=== PATIENT | female | born 1950 | race Caucasian/White ===

== ENCOUNTER 2022-05-29 14:36 | Inpatient (IN) | payer MEDICARE, MEDICAID ==
[~2022-05-29] VITALS: Ht 152.4 cm; Wt 77.2 kg
[2022-05-29] MEDS ORDERED: HYDROCODONE/APAP 7.5MG-325MG 1 EA TAB PO NR (15:45)
[2022-05-29 16:12] LABS: CLARITY,URINE SL CLOUDY (CLEAR); COLOR,URINE YELLOW (YELLOW)
[2022-05-29 16:13] LABS: KETONES,URINE NEGATIVE (NEGATIVE); LEUKOCYTE ESTERASE ,URINE TRACE (NEGATIVE); NITRITE,URINE NEGATIVE (NEGATIVE); PROTEIN,URINE DIPSTICK NEGATIVE (NEGATIVE); URINE UROBILINOGEN 0.2 mg/dL (0.2 - 1)
[2022-05-29 16:24] LABS: WBC,URINE (MAN) >50 /HPF (0-5)
[2022-05-29 16:25] LABS: BACTERIA,URINE MANY /HPF; EPITHELIAL CELLS,URINE MANY /LPF; TRANSITIONAL EPI CELLS,URINE MANY
[2022-05-29 16:26] LABS: RENAL EPITHELIAL CELLS,URINE FEW
[2022-05-29 16:48] LABS: BASOPHILS % 0.6 % (0.0-1.0); EOSINOPHILS # (AUTO) 0.5 (0.0-0.4); EOSINOPHILS % 8.2 % (0.0-6.0); HEMATOCRIT 35.8 % (34.2-44.1); HEMOGLOBIN 10.4 g/dL (12.0-16.0); LYMPHOCYTES # (AUTO) 1.6 (1.0-3.2); LYMPHOCYTES % 24.6 % (18.0-39.1); MEAN CORPUSCULAR HEMOGLOBIN 24.8 pg (28-32); MEAN CORPUSCULAR HGB CONC 29.1 g/dL (31-35); MEAN CORPUSCULAR VOLUME 85.2 fL (81-99); MONOCYTES # (AUTO) 0.5 (0.2-0.8); MONOCYTES % 7.3 % (4.4-11.3); NEUTROPHILS # (AUTO) 3.8 (2.1-6.9); NEUTROPHILS % 58.5 % (38.7-80.0); PLATELET COUNT 172 x10e3/uL (140-360); RED CELL DISTRIBUTION WIDTH 13.9 % (11.7-14.4)
[2022-05-29 16:51] LABS: INR 0.8; PROTHROMBIN TIME 11.8 seconds (11.9-14.5)
[2022-05-29 16:58] LABS: ALANINE AMINOTRANSFERASE 9 IU/L (0-55); ALBUMIN 3.2 g/dL (3.5-5.0); ALBUMIN/GLOBULIN RATIO 0.7 (0.8-2.0); ALKALINE PHOSPHATASE 100 IU/L (40-150); ANION GAP 17.9 mmol/L (8-16); BLOOD UREA NITROGEN 38 mg/dL (7-26); BUN/CREATININE RATIO 22 (6-25); CALCIUM 8.5 mg/dL (8.4-10.2); CARBON DIOXIDE 17 mmol/L (22-29); CHLORIDE 108 mmol/L (98-107); CREATINE KINASE 61 IU/L (29-168); CREATININE, SERUM 1.76 mg/dL (0.57-1.11); GLUCOSE 260 mg/dL (74-118); MAGNESIUM 1.7 MG/DL (1.3-2.1); POTASSIUM 4.9 mmol/L (3.5-5.1); SODIUM 138 mmol/L (136-145)
[2022-05-29] MEDS ORDERED: HEPARIN 25,000 UNIT 1,200 UNIT in DEXTROSE 5% 250ML 250 ML IV SCH (17:45)
[2022-05-29] MEDS ORDERED: HEPARIN SOD (PORCINE) 5,000 UNIT/ML VIAL IV ONE (17:45)
[2022-05-29] MEDS ORDERED: DEXTROSE 50% SYRINGE 50 ML IV PRN (18:00)
[2022-05-29] MEDS ORDERED: METOPROLOL TARTRATE 25 MG TAB PO SCH (18:00)
[2022-05-29] MEDS ORDERED: FAMOTIDINE 20 MG/2 ML VIAL IV SCH (18:00)
[2022-05-29] MEDS ORDERED: HEPARIN 25,000 UNIT DRIP IV ONE ×2 (18:41→23:38)
[2022-05-29] MEDS: Morphine 4mg INJECTION 4 MG/ML INJ IV PRN (19:30)
[2022-05-29] MEDS: ONDANSETRON HCL INJ 2MG/ML 2ML 2 MG/ML VIAL IV PRN (19:30)
[2022-05-29 20:07] LABS: CREATINE KINASE MB 2.1 ng/mL (0-5.0)
[2022-05-29 20:48] LABS: THYROID STIMULATING HORMONE 0.754 uIU/mL (0.350-4.940)
[2022-05-29 21:00] VITALS: BP 122/70
[2022-05-29] MEDS ORDERED: PANTOPRAZOLE SO40 MG PO (21:31)
[2022-05-29] MEDS ORDERED: ATORVASTATIN CA40 MG PO (21:31)
[2022-05-29] MEDS ORDERED: QUETIAPINE FUM400 MG PO (21:31)
[2022-05-29] MEDS ORDERED: AMBIEN10 MG PO (21:31)
[2022-05-29] MEDS ORDERED: CLOPIDOGREL75 MG PO (21:31)
[2022-05-29] MEDS ORDERED: HUMALOG100 UNIT/1 SQ (21:31)
[2022-05-29] MEDS ORDERED: BUSPIRONE HCL10 MG PO (21:31)
[2022-05-29] MEDS ORDERED: DULOXETINE HCL60 MG PO (21:31)
[2022-05-29] MEDS: QUETIAPINE FUMARATE 100 MG TAB PO SCH (23:34)
[2022-05-29] MEDS: INSULIN LISPRO 100 UNIT/1 ML 3ML VIAL SQ SCH (23:34)
[2022-05-29] MEDS: ZOLPIDEM TARTRATE 10 MG TAB PO SCH (23:34)
[2022-05-29] MEDS: SODIUM CHLORIDE 0.9% 1000ML 1,000 ML IV SCH (23:45)
[2022-05-30] VITALS (10 sets, daily range): BP systolic 90–121; BP diastolic 54–81
[2022-05-30] MEDS: ONDANSETRON HCL INJ 2MG/ML 2ML 2 MG/ML VIAL IV PRN
[2022-05-30] MEDS ORDERED: HEPARIN SOD (PORCINE) 5,000 UNIT/ML VIAL ONE (00:20)
[2022-05-30 01:21] LABS: CREATINE KINASE MB 2.1 ng/mL (0-5.0)
[2022-05-30 06:22] LABS: BASOPHILS % 0.6 % (0.0-1.0); EOSINOPHILS # (AUTO) 0.6 (0.0-0.4); EOSINOPHILS % 9.1 % (0.0-6.0); HEMATOCRIT 28.9 % (34.2-44.1); HEMOGLOBIN 8.7 g/dL (12.0-16.0); LYMPHOCYTES # (AUTO) 1.8 (1.0-3.2); LYMPHOCYTES % 28.7 % (18.0-39.1); MEAN CORPUSCULAR HEMOGLOBIN 25.1 pg (28-32); MEAN CORPUSCULAR HGB CONC 30.1 g/dL (31-35); MEAN CORPUSCULAR VOLUME 83.5 fL (81-99); MONOCYTES # (AUTO) 0.4 (0.2-0.8); MONOCYTES % 6.6 % (4.4-11.3); NEUTROPHILS # (AUTO) 3.4 (2.1-6.9); NEUTROPHILS % 54.2 % (38.7-80.0); PLATELET COUNT 223 x10e3/uL (140-360); RED BLOOD COUNT 3.46 x10e6/uL (3.6-5.1); RED CELL DISTRIBUTION WIDTH 14.2 % (11.7-14.4)
[2022-05-30 06:52] LABS: ALBUMIN 2.5 g/dL (3.5-5.0); ALBUMIN/GLOBULIN RATIO 0.8 (0.8-2.0); ANION GAP 12.9 mmol/L (8-16); CALCIUM 7.5 mg/dL (8.4-10.2); CHOL/HDL RATIO 3.6 (3.0-3.6); CREATININE, SERUM 1.74 mg/dL (0.57-1.11); POTASSIUM 3.9 mmol/L (3.5-5.1)
[2022-05-30] MEDS: SODIUM CHLORIDE 0.9% 1000ML 1,000 ML IV SCH ×2 (08:10→13:45)
[2022-05-30] MEDS: PANTOPRAZOLE SOD 40 MG TABEC PO SCH (08:39)
[2022-05-30] MEDS: INSULIN LISPRO 100 UNIT/1 ML 3ML VIAL SQ SCH ×4 (08:40→20:55)
[2022-05-30] MEDS: DULOXETINE HCL 30 MG DELAYED RELEASE PO SCH ×2 (08:40→19:58)
[2022-05-30] MEDS: BUSPIRONE HCL 10 MG TABLET PO SCH ×3 (08:41→20:43)
[2022-05-30] MEDS: FAMOTIDINE 20 MG/2 ML VIAL IV SCH (08:46)
[2022-05-30] MEDS ORDERED: CLOPIDOGREL BISULFATE 75 MG TAB PO SCH (09:00)
[2022-05-30] MEDS: METOPROLOL TARTRATE 25 MG TAB PO SCH ×2 (10:02→21:22)
[2022-05-30] MEDS: Morphine 4mg INJECTION 4 MG/ML INJ IV PRN ×5 (10:04→22:24)
[2022-05-30] MEDS: LIDOCAINE 4% PATCH TP SCH (15:10)
[2022-05-30] MEDS: QUETIAPINE FUMARATE 100 MG TAB PO SCH (20:44)
[2022-05-30] MEDS: ATORVASTATIN 40 MG TAB PO SCH (20:44)
[2022-05-30] MEDS: ZOLPIDEM TARTRATE 10 MG TAB PO SCH (20:44)
[2022-05-31] VITALS (8 sets, daily range): BP systolic 98–132; BP diastolic 52–70
[2022-05-31] MEDS: Morphine 4mg INJECTION 4 MG/ML INJ IV PRN ×4 (05:08→17:57)
[2022-05-31 06:18] LABS: ANION GAP 12.8 mmol/L (8-16); CALCIUM 7.5 mg/dL (8.4-10.2); CREATININE, SERUM 1.88 mg/dL (0.57-1.11); POTASSIUM 4.8 mmol/L (3.5-5.1)
[2022-05-31] MEDS ORDERED: HEPARIN 25,000 UNIT 25,000 UNIT in DEXTROSE 5% 250ML 250 ML IV SCH (06:30)
[2022-05-31] MEDS ORDERED: HEPARIN 25,000 UNIT 1,600 UNIT in DEXTROSE 5% 250ML 250 ML IV SCH (06:45)
[2022-05-31] MEDS: ONDANSETRON HCL INJ 2MG/ML 2ML 2 MG/ML VIAL IV PRN (09:22)
[2022-05-31] MEDS: FAMOTIDINE 20 MG/2 ML VIAL IV SCH (09:22)
[2022-05-31] MEDS: DULOXETINE HCL 30 MG DELAYED RELEASE PO SCH ×2 (09:23→20:52)
[2022-05-31] MEDS: LIDOCAINE 4% PATCH TP SCH (09:23)
[2022-05-31] MEDS: BUSPIRONE HCL 10 MG TABLET PO SCH ×3 (09:23→20:51)
[2022-05-31] MEDS: METOPROLOL TARTRATE 25 MG TAB PO SCH ×2 (09:23→20:51)
[2022-05-31] MEDS: PANTOPRAZOLE SOD 40 MG TABEC PO SCH (09:24)
[2022-05-31] MEDS: INSULIN LISPRO 100 UNIT/1 ML 3ML VIAL SQ SCH ×4 (10:19→21:10)
[2022-05-31] MEDS: SODIUM CHLORIDE 0.9% 1000ML 1,000 ML IV SCH (14:55)
[2022-05-31] MEDS: QUETIAPINE FUMARATE 100 MG TAB PO SCH (20:51)
[2022-05-31] MEDS: ATORVASTATIN 40 MG TAB PO SCH (20:51)
[2022-05-31] MEDS: ZOLPIDEM TARTRATE 10 MG TAB PO SCH (20:52)
[2022-05-31] MEDS: HEPARIN SOD (PORCINE) 5,000 UNIT/ML VIAL SC SCH (21:10)
[2022-06-01] VITALS (8 sets, daily range): BP systolic 101–135; BP diastolic 54–78
[2022-06-01 06:11] LABS: ANION GAP 14.8 mmol/L (8-16); CALCIUM 7.3 mg/dL (8.4-10.2); CREATININE, SERUM 1.92 mg/dL (0.57-1.11); POTASSIUM 4.8 mmol/L (3.5-5.1)
[2022-06-01] MEDS: INSULIN LISPRO 100 UNIT/1 ML 3ML VIAL SQ SCH ×4 (07:30→21:19)
[2022-06-01] MEDS: DULOXETINE HCL 30 MG DELAYED RELEASE PO SCH ×2 (08:59→21:08)
[2022-06-01] MEDS: METOPROLOL TARTRATE 25 MG TAB PO SCH ×2 (08:59→21:07)
[2022-06-01] MEDS: BUSPIRONE HCL 10 MG TABLET PO SCH ×3 (08:59→21:07)
[2022-06-01] MEDS: LIDOCAINE 4% PATCH TP SCH (08:59)
[2022-06-01] MEDS: SODIUM CHLORIDE 0.9% 1000ML 1,000 ML IV SCH (09:00)
[2022-06-01] MEDS: PANTOPRAZOLE SOD 40 MG TABEC PO SCH (09:00)
[2022-06-01] MEDS: FAMOTIDINE 20 MG/2 ML VIAL IV SCH (09:00)
[2022-06-01] MEDS: HEPARIN SOD (PORCINE) 5,000 UNIT/ML VIAL SC SCH ×2 (09:19→21:19)
[2022-06-01] MEDS ORDERED: SODIUM BICARBONATE 8.4% 50 ML in SODIUM CHLORIDE 0.45% 1,000 ML IV ONE (10:00)
[2022-06-01] MEDS: Morphine 4mg INJECTION 4 MG/ML INJ IV PRN ×2 (14:22→17:53)
[2022-06-01] MEDS ORDERED: SODIUM CHLORIDE 0.9% 1000ML 1,000 ML IV SCH (14:30)
[2022-06-01] MEDS: SENNOSIDES 8.6 MG TAB PO SCH ×2 (15:15→17:00)
[2022-06-01] MEDS ORDERED: LACTULOSE SYRUP 20 GM/30 ML UDC PO PRN (15:15)
[2022-06-01] MEDS ORDERED: LOPRESSOR25 MG PO (15:21)
[2022-06-01] MEDS ORDERED: SENOKOT8.6 MG PO (15:21)
[2022-06-01] MEDS ORDERED: DOCUSATE SODIU100 MG PO (15:21)
[2022-06-01] MEDS ORDERED: ONDANSETRON ODT4 MG PO (15:21)
[2022-06-01 16:51] LABS: ANION GAP 15.4 mmol/L (8-16); CALCIUM 7.6 mg/dL (8.4-10.2); CREATININE, SERUM 1.95 mg/dL (0.57-1.11); POTASSIUM 4.4 mmol/L (3.5-5.1)
[2022-06-01] MEDS: QUETIAPINE FUMARATE 100 MG TAB PO SCH (21:07)
[2022-06-01] MEDS: ZOLPIDEM TARTRATE 10 MG TAB PO SCH (21:07)
[2022-06-01] MEDS: ATORVASTATIN 40 MG TAB PO SCH (21:07)
[2022-06-02 00:45] VITALS: BP 102/64
[2022-06-02 04:40] VITALS: BP 102/64
[2022-06-02 06:34] VITALS: BP 117/56
[2022-06-02] MEDS: INSULIN LISPRO 100 UNIT/1 ML 3ML VIAL SQ SCH (07:20)
[2022-06-02 07:36] VITALS: BP 111/65
[2022-06-02 08:10] VITALS: BP 111/65
[2022-06-02] MEDS: SENNOSIDES 8.6 MG TAB PO SCH (09:00)
[2022-06-02] MEDS: DULOXETINE HCL 30 MG DELAYED RELEASE PO SCH (09:17)
[2022-06-02] MEDS: METOPROLOL TARTRATE 25 MG TAB PO SCH (09:18)
[2022-06-02] MEDS: Morphine 4mg INJECTION 4 MG/ML INJ IV PRN (09:18)
[2022-06-02] MEDS: BUSPIRONE HCL 10 MG TABLET PO SCH (09:18)
[2022-06-02] MEDS: FAMOTIDINE 20 MG/2 ML VIAL IV SCH (09:18)
[2022-06-02] MEDS: PANTOPRAZOLE SOD 40 MG TABEC PO SCH (09:18)
[2022-06-02] MEDS: LIDOCAINE 4% PATCH TP SCH (09:19)
[2022-06-02 09:21] LABS: BASOPHILS % 0.5 % (0.0-1.0); EOSINOPHILS # (AUTO) 0.5 (0.0-0.4); EOSINOPHILS % 6.9 % (0.0-6.0); HEMATOCRIT 28.6 % (34.2-44.1); HEMOGLOBIN 8.5 g/dL (12.0-16.0); LYMPHOCYTES # (AUTO) 1.2 (1.0-3.2); LYMPHOCYTES % 17.9 % (18.0-39.1); MEAN CORPUSCULAR HEMOGLOBIN 24.8 pg (28-32); MEAN CORPUSCULAR HGB CONC 29.7 g/dL (31-35); MEAN CORPUSCULAR VOLUME 83.4 fL (81-99); MONOCYTES # (AUTO) 0.4 (0.2-0.8); MONOCYTES % 6.6 % (4.4-11.3); NEUTROPHILS # (AUTO) 4.4 (2.1-6.9); NEUTROPHILS % 66.7 % (38.7-80.0); PLATELET COUNT 208 x10e3/uL (140-360); RED BLOOD COUNT 3.43 x10e6/uL (3.6-5.1); RED CELL DISTRIBUTION WIDTH 14.6 % (11.7-14.4)
[2022-06-02] MEDS: HEPARIN SOD (PORCINE) 5,000 UNIT/ML VIAL SC SCH (09:32)
[2022-06-02 09:42] LABS: ANION GAP 14.4 mmol/L (8-16); CALCIUM 7.3 mg/dL (8.4-10.2); CREATININE, SERUM 1.87 mg/dL (0.57-1.11); POTASSIUM 4.4 mmol/L (3.5-5.1)
[2022-06-02 11:19] VITALS: BP 109/59
== END 2022-06-02 12:35 | disposition home health service (06) | DRG 690 ==
LOC: ER 14:47 → ERHOLD 18:01 → MED/SURG3 20:41
PROVIDERS: ADMIT Internal Medicine; ATTEND Internal Medicine
PROC: 02HV33Z Insertion of Infusion Device into Superior Vena Cava, Percutaneous Approach (ICD-10-PCS; principal; 2022-05-29)
DX: N39.0 Urinary tract infection, site not specified (principal); E87.2 Acidosis; I13.0 Hypertensive heart and chronic kidney disease with heart failure and stage 1 through stage 4 chronic kidney disease, or unspecified chronic kidney disease; I50.32 Chronic diastolic (congestive) heart failure; N18.4 Chronic kidney disease, stage 4 (severe); I25.10 Atherosclerotic heart disease of native coronary artery without angina pectoris; Z95.5 Presence of coronary angioplasty implant and graft; K21.9 Gastro-esophageal reflux disease without esophagitis; E11.69 Type 2 diabetes mellitus with other specified complication; E78.49 Other hyperlipidemia; D64.9 Anemia, unspecified; R07.89 Other chest pain; I25.2 Old myocardial infarction; E11.22 Type 2 diabetes mellitus with diabetic chronic kidney disease; Z79.4 Long term (current) use of insulin; K57.90 Diverticulosis of intestine, part unspecified, without perforation or abscess without bleeding; K59.00 Constipation, unspecified; Z86.73 Personal history of transient ischemic attack (TIA), and cerebral infarction without residual deficits; R31.29 Other microscopic hematuria; Z88.8 Allergy status to other drugs, medicaments and biological substances; Z88.6 Allergy status to analgesic agent; Z88.1 Allergy status to other antibiotic agents; Z91.030 Bee allergy status; Z20.822 Contact with and (suspected) exposure to COVID-19
CPT/HCPCS: 0223U; 36415; 71045; 74176; 78580; 80048; 80053; 80061; 81001; 82550; 82553; 82948; 83036; 83735; 83880; 84443; 84484; 85025; 85379; 85610; 85730; 87086; 93005; 93306; 93970; 94799; 96361; 99285; A9540; J0696; J1644; J2270; J2405; J7030